=== PATIENT | female | born 1960 | race Caucasian/White ===

== ENCOUNTER 2018-11-22 05:46 | Day surgery (SDC) | payer OTHER ==
[2018-11-22] MEDS ORDERED: MIDAZOLAM 1 MG/ML 2 ML INJ ×2 (08:00)
[2018-11-22] MEDS ORDERED: FENTAnyl 50 MCG/ML VIAL (08:00)
== END 2018-11-22 10:14 | disposition home or self-care (01) ==
LOC: GIL 05:46
DX: K29.50 Unspecified chronic gastritis without bleeding (principal); K25.7 Chronic gastric ulcer without hemorrhage or perforation
CPT/HCPCS: 43239; 88305; 88312